=== PATIENT | male | born 1990 | race Caucasian/White ===

== ENCOUNTER 2016-07-09 07:15 | Emergency (ER) | payer BC ==
[2016-07-09] MEDS ORDERED: ACETAMINOPHEN 500 MG TABLET PO ONE (08:20)
[2016-07-09] MEDS ORDERED: RINGERS SOLUTION,LACTATED 1,000 ML IV ONE (08:20)
[2016-07-09] MEDS ORDERED: PROMETHAZINE HCL 25 MG in DEXTROSE 5 % IN WATER 50 ML IV ONE ×2 (08:20)
--- NOTE | 2016-07-09 08:26 | ERNOTE ---
Abdominal HPI - Narrative Date of Service: 07/09/16 - General Chief Complaint: Abdominal Pain Time Seen by Provider: 07/09/16 08:12 Source: patient Exam Limitations: no limitations - Immun/Allergies/Home Medications Immunizatons: IMMUNIZATION HX History of Influenza Vaccine No Hx Pneumococcal Vaccination No Allergies/Adverse Reactions: Allergies No Known Allergies Allergy (Verified 07/09/16 07:23) Home Medications: HOME MEDICATIONS Promethazine HCl [Phenergan (Promethazine)] 25 mg PO QID #14 tab 07/09/16 [Last Taken Unknown] - History of Present Illness Narrative: Two days ago began to have pressure like generalized abdominal pain associated with brown watery diarrhea, multiple episodes. Nausea, but no vomiting, because he hates to vomit. Very fatigued. Hot and cold, but didn't take his temperature. No myalgias. No headache. Once child with vomiting at home. He was with his yesterday in the ER, because she had abdominal pain. Timing: constant Quality: moderate Activities at Onset: none Modifying Factors - (Improves): Present: other - nothing Modifying Factors - (Worsens): Present: eating, other - driniking Associated Symptoms: Present: diarrhea-mucous, fatigue, nausea, loss of appetite Prior Abdominal Problems: Present: none Prior Treatment: Present: other - strep and influenza in the family. Absent: recently seen, currently on antibiotics Review of Systems - Review of Systems Constitutional: Present: weakness, fatigue, malaise EYE: Present: no symptoms reported ENT: Present: no symptoms reported Respiratory: Present: no symptoms reported Cardiology: Present: no symptoms reported Gastrointestinal/Abdominal: Present: See HPI Genitourinary: Present: no symptoms reported Musculoskeletal: Present: no symptoms reported Neurological: Present: no symptoms reported Endocrine: Present: no symptoms reported Hematologic/Lymphatic: Present: no symptoms reported Psych: Present: no symptoms reported All Other Systems: All systems neg except as marked - Patient's Past Medical History Patient History - Medical: No pertinent hx Patient History - Cardiac/Respiratory: No pertinent hx Patient History - Cancer: No Hx of Cancer Patient History - Surgical Procedures: No surgical history - Social History Living Situations: home Smoking Status: Current every day smoker Alcohol Use: occasionally Drug Use: none Physical Exam - Physical Exam General Appearance: Present: wd/wn, alert, no apparent distress Eye Exam: Normal inspection: bilateral, PERRL: bilateral, EOMI: bilateral Ears, Nose, Throat: Present: normal ENT inspection, hearing grossly normal, dry mucous membranes Neck: Present: normal inspection Respiratory: Present: no respiratory distress, normal breath sounds Cardiovascular/Chest: Present: regular rate, rhythm, no murmur Gastrointestinal/Abdominal: Present: normal bowel sounds, nondistended, soft, no organomegaly, tenderness - generalized mild tenderness Back Exam: Present: normal inspection Extremity Exam: Present: normal inspection, no edema Neurological Exam: Present: alert, oriented, normal mood/affect, no motor/ sensory deficits Skin Exam: Present: normal color, warm/dry ED Progress - Results and Orders Patient's Lab Results:: I have reviewed the patient's lab results. - Vital Signs Patient's Vital Signs:: I have reviewed the patient's vital signs. Vital Signs: Vital Signs 07/09/16 07:18 Temperature 36.3 C L Pulse Rate 97 Respiratory 12 Rate Blood Pressure 140/84 O2 Sat by Pulse 96 Oximetry - Progress/Reassessment Chief Complaint: Abdominal Pain Progress:: Improved Departure - Departure Clinical Impression: Viral gastroenteritis Disposition: Home self-care Condition: Good Instructions: Viral Gastroenteritis, Adult, [id number], Clear Liquid Diet, [id number], Form - Excuse from Work, School, or Physical Activity Additional Instructions: Rest. Don't work. See your doctor in 3 days. Drink only clear liquids for the next 72 hours. Prescriptions: Promethazine HCl [Phenergan (Promethazine)] 25 mg PO QID #14 tab
[2016-07-09 09:10] LABS: Hemoglobin 15.6 gm/dL (13.5-18.0); Mean Cell Volume 82.1 fl (78-100); Mean Corpuscular Hemoglobin 27.9 pg (27-31); Mean Corpuscular Hgb Conc 33.9 g/dl (32-36); Neutrophil # 4.4 K/mm3 (1.3-6.0); Neutrophil % 60.7 % (42-75.0); Platelet Count 310 K/mm3 (150-450); Red Cell Distribution Width 12.5 % (11.5-14.0); White Blood Count 7.2 K/mm3 (4.0-10.5)
[2016-07-09 09:24] LABS: Albumin * 4.7 gm/dl (3.4-5.0); Anion Gap 16.6 mmol/L (6.8-13.8); BUN/Creatinine Ratio 13.9 (9.0-21.6); Bilirubin, Total 0.4 mg/dL (0.0-1.1); Ca. Corrected For Albumin 8.6 mg/dL (8.4-10.2); Calcium * 9.5 mg/dL (7.9-10.9); Carbon Dioxide 23.3 mmol/L (24-32.6); Potassium 4.9 mmol/L (3.4-4.6); Total Protein 9.1 gm/dL (6.2-8.2)
[2016-07-09 10:06] VITALS: BP 131/63
== END 2016-07-09 10:24 | disposition home or self-care (01) ==
LOC: ER 07:15
DX: A08.4 Viral intestinal infection, unspecified (principal); F17.210 Nicotine dependence, cigarettes, uncomplicated